=== PATIENT | female | born 1960 ===

== ENCOUNTER 2018-01-01 09:02 | Emergency (ER) | payer OTHER ==
[2018-01-01] MEDS ORDERED: Sodium Chloride 0.9% 10 ML Syringe FLUSH PRN (09:14)
--- NOTE | 2018-01-01 09:32 | CT ---
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 Scan technique: Volume acquisition of data emergency unenhanced CT scan of the head and brain obtaine d while the patient was lying supine on the Siemens multi slice scanner [place], [place]. All data archived in the PACS system for storage, reformatting axial/sagittal/cor onal planes and study. Interpretation: Abnormal. 1. *Several tiny focal areas of decreased attenuation (lacunar infarcts) identified middle cerebral a rtery circulation, parietal lobe, left cerebral hemisphere. No associated edema or mass effect on the surrounding brain parenchyma or cerebral sulci. 2. No sign of supratentorial or posterior fossa mass lesion. 3. No hydrocephalus. 4. No sign of acute intracerebral/intraventricular/subarachnoid bleed. 5. Uniformly thick bony calvarium. Symmetric clear pneumatization of the paranasal and mastoid sinuse s. No sign of pathologic skeletal lesion, skull fracture, underlying brain contusion, extracerebral/i ntracranial epidural or subdural hematoma. Note: Results of this exam reported to the emergency department provider at 0925 hours, , 01 January 2018. CONCLUSION: Microvascular ischemic changes left cerebral hemisphere. No sign of acute intracranial bl eed.
[2018-01-01 09:41] LABS: ANION GAP 13.9; CHLORIDE,CL 99 mmol/L (101-111); SODIUM,NA 136 mmol/L (135-145)
--- NOTE | 2018-01-01 11:18 | MR ---
CLINICAL HISTORY: 57-year-old 210 pound diabetic female with persistent right facial and upper extrem ity numbness/tingling. (Loss of dexterity right hand) emergency CT scan revealed "tiny lacunar infarc ts white matter. No intracranial hemorrhage." SCAN TECHNIQUE: Unenhanced sagittal T1 and multisequence (FLAIR, T1, T2, diffusion-weighted) axial im ages of the head and brain obtained while the patient was lying supine on the [facility] 1.5 [facility]. All data archived in the PACS system for st orage, reformatting and study. INTERPRETATION: Abnormal. Multiple tiny bright lesions identified scattered throughout the periventricular white matter of both cerebral hemispheres. These lesions consistent with hypertension, diabetes and/or carotid vascular disease. Clinical? No cerebral edema or intracranial mass effect (supratentorial or posterior fossa). No sign of acute intracerebral/intraventricular/subarachnoid bleed. No abnormal extracerebral/intracr anial epidural or subdural hematoma. Cerebellum and brainstem unremarkable. Symmetric clear pneumatization of the mastoid and paranasal sinuses, i.e., no abnormal inflammatory c hanges. Nasal septum is straight in the midline. CONCLUSION: Microvascular ischemic changes periventricular white matter of both cerebral hemispheres. No intracranial mass, hydrocephalus or bleed.
--- NOTE | 2018-01-01 11:19 | EDM.PDOC ---
ED HPI GENERAL MEDICAL PROBLEM - General Chief Complaint: Neuro Symptoms/Deficits Stated Complaint: RIGHT HAND NUMBNESS [id number] Time Seen by Provider: 01/01/18 09:05 Source of Information: Reports: Patient, RN, RN Notes Reviewed History Limitations: Reports: No Limitations - History of Present Illness INITIAL COMMENTS - FREE TEXT/NARRATIVE: Pt to ER with c/o right arm/hand numbness/tingling, numbness and tingling to the right side of the face and into the lips. 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 She denies visual disturbance, headache, weakness. Coworker states the patient had some right sided facial drooping prior to arrival in the ER. Onset: Today, Sudden - Related Data Allergies Allergy/AdvReac Type Severity Reaction Status Date / Time Penicillins Allergy Rash Verified 01/01/18 09:28 amlodipine besy-bensepril hcl Allergy UNKNOWN Uncoded 04/01/14 08:31 moexipril hydrochloride Allergy UNKNOWN Uncoded 04/01/14 08:31 Home Meds: Home Meds glipiZIDE [Glucotrol Xl] 10 mg PO 04/01/14 [History] metFORMIN [Glucophage] 1,000 mg PO 04/01/14 [History] Past Medical History Cardiovascular History: Reports: Hypertension Endocrine/Metabolic History: Reports: Diabetes, Type II Social & Family History - Tobacco Use Smoking Status *Q: Never Smoker - Recreational Drug Use Recreational Drug Use: No ED ROS GENERAL - Review of Systems Review Of Systems: ROS reveals no pertinent complaints other than HPI. ED EXAM, NEURO - Physical Exam Exam: See Below Exam Limited By: No Limitations General Appearance: Alert, WD/WN, No Apparent Distress Eye Exam: Bilateral Eye: EOMI, Normal Inspection Ears: Normal External Exam, Hearing Grossly Normal Nose: Normal Inspection Throat/Mouth: Normal Inspection, Normal Voice, No Airway Compromise Head Exam: Atraumatic, Normocephalic Neck: Normal Inspection, Supple, Non-Tender, Full Range of Motion Respiratory/Chest: No Respiratory Distress, Lungs Clear, Normal Breath Sounds, No Accessory Muscle Use, Chest Non-Tender Cardiovascular: Normal Peripheral Pulses, Regular Rate, Rhythm, No Edema, No Gallop, No JVD, No Murmur, No Rub GI/Abdominal: Normal Bowel Sounds, Soft, Non-Tender (Female) Exam: Deferred Rectal (Female) Exam: Deferred Neurological: Alert, Normal Mood/Affect, Normal Reflexes, Other (numbness and tingling to right arm.) Back Exam: Normal Inspection, Full Range of Motion Extremities: Normal Inspection, Non-Tender, Normal Capillary Refill, Other ( decreased dexterity with the right hand, continues with numbness and tingling) Psychiatric: Normal Affect, Normal Mood Skin Exam: Warm, Dry, Intact, Normal Color, No Rash Course - Vital Signs Last Recorded V/S: Last Vital Signs Temp 98.1 F 01/01/18 11:44 Pulse 93 01/01/18 11:44 Resp 15 01/01/18 11:44 BP 139/56 L 01/01/18 11:44 Pulse Ox 95 01/01/18 11:44 - Orders/Labs/Meds Orders: Active Orders 24 hr Category Date Time Status EKG Documentation Completion [RC] STAT Care 01/01/18 09:15 Active Peripheral IV Care [RC] . DIRECTED Care 01/01/18 09:15 Active UA W/MICROSCOPIC [URIN] Stat Lab 01/01/18 10:40 Ordered Peripheral IV Insertion Adult [OM.PC] Stat Oth 01/01/18 09:15 Ordered Labs: Laboratory Tests 01/01/18 01/01/18 01/01/18 Range/Units 09:15 09:15 09:15 WBC 12.1 H (5.0-10.0) 10^3/uL RBC 4.71 (4.2-5.4) 10^6/uL Hgb 14.2 (12.0-16.0) g/dL Hct 42.8 (37.0-47.0) % MCV 90.9 (80-100) fL MCH 30.1 (27.0-34.0) pg MCHC 33.2 (33.0-35.0) g/dL Plt Count 306 (150-450) 10^3/uL Neut % (Auto) 56.2 (42.2-75.2) % Lymph % (Auto) 32.3 (20.5-50.1) % Person % (Auto) 8.8 H (2-8) % Eos % (Auto) 2.4 (1.0-3.0) % Baso % (Auto) 0.3 (0.0-1.0) % PT 9.1 (9.0-12.0) SEC INR 0.9 (0.9-1.2) Sodium 136 (135-145) mmol/L Potassium 3.9 (3.6-5.0) mmol/L Chloride 99 L (101-111) mmol/L Carbon Dioxide 27.0 (21.0-31.0) mmol/L Anion Gap 13.9 BUN 17 (7-18) mg/dL Creatinine 0.8 (0.6-1.3) mg/dL Est Cr Clr Drug Dosing 66.19 mL/min Estimated GFR (MDRD) > 60 BUN/Creatinine Ratio 21.25 Glucose 146 H (74-105) mg/dL Calcium 9.6 (8.4-10.2) mg/dl Total Bilirubin 0.8 (0.2-1.0) mg/dL AST 28 (10-42) IU/L ALT 17 (10-60) IU/L Alkaline Phosphatase 91 (42-121) IU/L Total Protein 7.7 (6.7-8.2) g/dl Albumin 4.1 (3.2-5.5) g/dl Globulin 3.6 Albumin/Globulin Ratio 1.14 Urine Color (YELLOW) Urine Appearance (CLEAR) Urine pH (5.0-9.0) Ur Specific Baring (1.005-1.030) Urine Protein (NEGATIVE) Urine Glucose (UA) (NEGATIVE) Urine Ketones (NEGATIVE) Urine Occult Blood (NEGATIVE) Urine Nitrite (NEGATIVE) Urine Bilirubin (NEGATIVE) Urine Urobilinogen (0.2-1.0) mg/dL Ur Leukocyte Esterase (NEGATIVE) Urine RBC /HPF Urine WBC (0-5/HPF) /HPF Ur Epithelial Cells /HPF Urine Bacteria (0-FEW/HPF) /HPF 01/01/18 Range/Units 10:40 WBC (5.0-10.0) 10^3/uL RBC (4.2-5.4) 10^6/uL Hgb (12.0-16.0) g/dL Hct (37.0-47.0) % MCV (80-100) fL MCH (27.0-34.0) pg MCHC (33.0-35.0) g/dL Plt Count (150-450) 10^3/uL Neut % (Auto) (42.2-75.2) % Lymph % (Auto) (20.5-50.1) % Person % (Auto) (2-8) % Eos % (Auto) (1.0-3.0) % Baso % (Auto) (0.0-1.0) % PT (9.0-12.0) SEC INR (0.9-1.2) Sodium (135-145) mmol/L Potassium (3.6-5.0) mmol/L Chloride (101-111) mmol/L Carbon Dioxide (21.0-31.0) mmol/L Anion Gap BUN (7-18) mg/dL Creatinine (0.6-1.3) mg/dL Est Cr Clr Drug Dosing mL/min Estimated GFR (MDRD) BUN/Creatinine Ratio Glucose (74-105) mg/dL Calcium (8.4-10.2) mg/dl Total Bilirubin (0.2-1.0) mg/dL AST (10-42) IU/L ALT (10-60) IU/L Alkaline Phosphatase (42-121) IU/L Total Protein (6.7-8.2) g/dl Albumin (3.2-5.5) g/dl Globulin Albumin/Globulin Ratio Urine Color Yellow (YELLOW) Urine Appearance Clear (CLEAR) Urine pH 5.5 (5.0-9.0) Ur Specific Baring <= 1.005 (1.005-1.030) Urine Protein Negative (NEGATIVE) Urine Glucose (UA) 500 H (NEGATIVE) Urine Ketones Negative (NEGATIVE) Urine Occult Blood Negative (NEGATIVE) Urine Nitrite Negative (NEGATIVE) Urine Bilirubin Negative (NEGATIVE) Urine Urobilinogen 0.2 (0.2-1.0) mg/dL Ur Leukocyte Esterase Negative (NEGATIVE) Urine RBC 0-5 /HPF Urine WBC 0-5 (0-5/HPF) /HPF Ur Epithelial Cells Rare /HPF Urine Bacteria Rare (0-FEW/HPF) /HPF Meds: Medications Discontinued Medications Generic Name Dose Route Start Last Admin Trade Name Freq PRN Reason Stop Dose Admin Sodium Chloride 10 ml 01/01/18 09:14 01/01/18 09:08 Saline Flush FLUSH 10 ml ASDIRECTED PRN Administration Keep Vein Open - Radiology Interpretation Free Text/Narrative:: CT head: Microvascular ischemic changes left cerebral hemisphere. No sign of acute intracranial bleed. See rad report. - Re-Assessments/Exams Free Text/Narrative Re-Assessment/Exam: 01/01/18 18:33 Patient case discussed with Dr. Gordon. He recommended MRI. MRI was found to have no acute findings. Discussed the patient case with Dr. Blake who agreed to accept the patient. Free Text/Narrative Re-Assessment/Exam: 01/01/18 18:34 NIH score 0 Departure - Departure Time of Disposition: 12:53 Disposition: Home, Self-Care 01 Condition: Fair Clinical Impression: Neurological abnormality, TIA (transient ischemic attack) - Discharge Information *PRESCRIPTION DRUG MONITORING PROGRAM REVIEWED*: No *COPY OF PRESCRIPTION DRUG MONITORING REPORT IN PATIENT CRISTOBAL: No Referrals: Linh Chavarria PA [Primary Care Provider] - Forms: ED Department Discharge, Interfacility Transfer EMTALA - My Orders Last 24 Hours: My Active Orders 01/01/18 09:15 EKG Documentation Completion [RC] STAT Peripheral IV Care [RC] . DIRECTED Peripheral IV Insertion Adult [OM.PC] Stat 01/01/18 10:40 UA W/MICROSCOPIC [URIN] Stat - Assessment/Plan Last 24 Hours: My Active Orders 01/01/18 09:15 EKG Documentation Completion [RC] STAT Peripheral IV Care [RC] . DIRECTED Peripheral IV Insertion Adult [OM.PC] Stat 01/01/18 10:40 UA W/MICROSCOPIC [URIN] Stat
== END 2018-01-01 11:50 | disposition home or self-care (01) ==
LOC: DL.ED 09:02
DX: G45.9 Transient cerebral ischemic attack, unspecified (principal); E11.9 Type 2 diabetes mellitus without complications; Z79.84 Long term (current) use of oral hypoglycemic drugs; Z88.8 Allergy status to other drugs, medicaments and biological substances; Z88.0 Allergy status to penicillin
CPT/HCPCS: 36415; 70450; 70551; 80053; 81001; 85025; 85610; 93005; 99285; J7050